=== PATIENT | female | born 1985 | race Caucasian/White ===

== ENCOUNTER → 2017-11-01 | Outpatient (CLI) | payer OTHER | LOC: BMCIMAGING 12:51 | PROVIDERS: ATTEND Family Medicine | DX: R06.02 Shortness of breath (principal) ==

== ENCOUNTER → 2018-08-17 | Outpatient (CLI) | payer OTHER | LOC: BMCIMAGING 15:44 | PROVIDERS: ATTEND Family Medicine | DX: R06.02 Shortness of breath (principal); J40 Bronchitis, not specified as acute or chronic ==